=== PATIENT | female | born 2000 | race African-American/Black ===

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

== ENCOUNTER 2022-05-17 10:57 | Emergency (ER) | payer BC ==
[~2022-05-17] VITALS: Ht 160 cm; Wt 49.0 kg
[2022-05-17 11:25] VITALS: BP_SYST 122
--- NOTE | 2022-05-17 11:25 | NUR ---
Patient triaged and placed in waiting room. VSS and patient appears in no acute distress at this time. Accompanied by SELF, awaiting available bed, and MD notified of need for MSE.
--- NOTE | 2022-05-17 14:23 | NUR ---
ER DR. SANCHEZ EXAMINING PT IN TRIAGE
[2022-05-17 14:34] LABS: BILIRUBIN,URINE NEGATIVE (NEGATIVE); BLOOD, URINE 3+ (NEGATIVE); COLOR,URINE YELLOW (YELLOW); GLUCOSE,URINE NEGATIVE (NEGATIVE); KETONES,URINE NEGATIVE (NEGATIVE); LEUKOCYTE ESTERASE ,URINE NEGATIVE (NEGATIVE); NITRITE, URINE NEGATIVE (NEGATIVE); PROTEIN URINE NEGATIVE (NEGATIVE); UROBILINOGEN,URINE 0.2 (0.2-1.0)
[2022-05-17 14:49] LABS: BACTERIA,URINE FEW /HPF (None Seen); CLARITY/URINE HAZY (CLEAR); RBC,URINE 50-80 /HPF (0-3); WBC,URINE 0-3 /HPF (0-3)
[2022-05-17 14:50] LABS: MUCUS,URINE None Seen /LPF (None Seen)
[2022-05-17 15:06] LABS: BASOPHILS % (AUTO) 0.6 % (0.0-2.0); EOSINOPHILS # (AUTO) 0.1 K/uL (0.0-0.4); HEMATOCRIT 38.6 % (36-48); HEMOGLOBIN 12.8 g/dL (12.0-16.0); LYMPHOCYTES # (AUTO) 1.5 K/uL (1.0-5.5); LYMPHOCYTES % (AUTO) 27.6 % (20.5-51.5); MEAN CORPUSCULAR HEMOGLOBIN 30 pg (27-31); MEAN CORPUSCULAR HGB CONC 33 % (32-36); MEAN CORPUSCULAR VOLUME 89 fL (79.0-98.0); MONOCYTES # (AUTO) 0.4 K/uL (0.0-1.0); MONOCYTES % (AUTO) 7.3 % (1.7-9.3); NEUTROPHILS # (AUTO) 3.3 K/uL (1.8-7.7); NEUTROPHILS % (AUTO) 62.5 % (40.0-70.0); PLATELET COUNT (AUTO) 216 K/uL (130-430); RED BLOOD CELL COUNT(AUTO) 4.32 MIL/uL (4.2-6.2); RED CELL DISTRIBUTION WIDTH 13.2 % (9.0-15.0); WHITE BLOOD COUNT (AUTO) 5.3 K/uL (4.5-11.0)
[2022-05-17 15:17] LABS: PROTHROMBIN TIME 10.7 SECS (9.5-12.5)
[2022-05-17 16:32] VITALS: BP_SYST 116
--- NOTE | 2022-05-17 16:32 | NUR ---
Patient given written and verbal discharge instructions and verbalizes understanding. ER MD discussed with patient the results and treatment provided. Patient in stable condition. ID arm band removed. NO RX GIVEN. Patient educated on pain management and to follow up with PMD. Pain Scale 0/10 Opportunity for questions provided and answered. FOLLOW UP IN 2 DAYS FOR REPEAT HCG
== END 2022-05-17 16:32 | disposition home or self-care (01) ==
LOC: SED 10:57
DX: O20.9 Hemorrhage in early pregnancy, unspecified (principal); Z3A.01 Less than 8 weeks gestation of pregnancy; Z88.0 Allergy status to penicillin; Z88.1 Allergy status to other antibiotic agents; Z79.899 Other long term (current) drug therapy
CPT/HCPCS: 36415; 76802; 81000; 84702; 85025; 85610-TC; 85730-TC; 86900; 86901; 99284

== ENCOUNTER 2023-01-28 04:50 | Inpatient (IN) | payer BC ==
[2023-01-28] VITALS (10 sets, daily range): BP systolic 110–149; PULSE 62–100; RESP 13–23; TEMP 97.6–98.6; O2SAT 18–100
[~2023-01-28] VITALS: Ht 160 cm; Wt 65.3 kg
[2023-01-28] MEDS ORDERED: CLINDAMYCIN 600 mg/50mL D5W 50 ML IV ONE (06:00)
[2023-01-28] MEDS ORDERED: CLINDAMYCIN 900 mg/50mL D5W 50 ML IV ONE (06:00)
[2023-01-28] MEDS ORDERED: LR 1,000 ML IV SCH ×2 (06:00→08:30)
[2023-01-28] MEDS ORDERED: CITRIC ACID/SODIUM CITRATE 30 ML UDC PO ONE (06:00)
[2023-01-28 06:13] LABS: BASOPHILS % (AUTO) 0.7 % (0.0-2.0); EOSINOPHILS % (AUTO) 0.7 % (0.0-4.0); HEMATOCRIT 36.1 % (36-48); HEMOGLOBIN 11.9 g/dL (12.0-16.0); LYMPHOCYTES # (AUTO) 1.2 K/uL (1.0-5.5); LYMPHOCYTES % (AUTO) 24.6 % (20.5-51.5); MEAN CORPUSCULAR HEMOGLOBIN 30 pg (27-31); MEAN CORPUSCULAR HGB CONC 33 % (32-36); MEAN CORPUSCULAR VOLUME 90 fL (79.0-98.0); MONOCYTES # (AUTO) 0.5 K/uL (0.0-1.0); MONOCYTES % (AUTO) 9.2 % (1.7-9.3); NEUTROPHILS # (AUTO) 3.3 K/uL (1.8-7.7); NEUTROPHILS % (AUTO) 64.8 % (40.0-70.0); PLATELET COUNT (AUTO) 129 K/uL (130-430); RED BLOOD CELL COUNT(AUTO) 4.03 MIL/uL (4.2-6.2); RED CELL DISTRIBUTION WIDTH 18.4 % (9.0-15.0)
[2023-01-28 06:25] LABS: BILIRUBIN,URINE NEGATIVE (NEGATIVE); BLOOD, URINE NEGATIVE (NEGATIVE); CLARITY/URINE Clear (CLEAR); COLOR,URINE YELLOW (YELLOW); GLUCOSE,URINE NEGATIVE (NEGATIVE); KETONES,URINE NEGATIVE (NEGATIVE); LEUKOCYTE ESTERASE ,URINE 1+ (NEGATIVE); NITRITE, URINE NEGATIVE (NEGATIVE); PROTEIN URINE NEGATIVE (NEGATIVE); UROBILINOGEN,URINE 0.2 (0.2-1.0)
[2023-01-28 06:49] LABS: BACTERIA,URINE RARE /HPF (None Seen); RBC,URINE 0-3 /HPF (0-3); WBC,URINE 0-3 /HPF (0-3)
[2023-01-28] MEDS ORDERED: METHYLERGONOVINE MALEATE 0.2 MG/ML AMP ONE (07:14)
[2023-01-28] MEDS ORDERED: NALOXONE HCL 0.4 MG/ML AMP (NARCAN) IVP PRN ×3 (08:00→15:15)
[2023-01-28] MEDS ORDERED: DIPHENHYDRAMINE INJ 50 MG/ML VIAL IM PRN (08:00)
[2023-01-28] MEDS ORDERED: KETOROLAC TROMETHAMINE 60 MG/2 ML VIAL IM PRN (08:00)
[2023-01-28] MEDS ORDERED: MEASLES,MUMPS&RUBELLA VACC/PF 12500 UNIT/0.5 ML VIAL SUBQ PRN (08:30)
[2023-01-28] MEDS ORDERED: DIPHTH,PERTUSS(ACELL),TET VAC 0.5 ML VIAL (Tdap) I.M. PRN (08:30)
[2023-01-28] MEDS ORDERED: OXYTOCIN/0.9 % SODIUM CHLORIDE 1,000 ML IV SCH ×2 (08:30→22:00)
[2023-01-28] MEDS ORDERED: ANUSOL 1 EA SUPP.RECT (PREPARATION H) RC PRN (08:30)
[2023-01-28] MEDS ORDERED: HYDROcodone/ACETAMIN 5-325 MG TAB (NORCO/ VICODIN) PO PRN (08:30)
[2023-01-28] MEDS ORDERED: TEMAZEPAM 15 MG CAPSULE PO PRN (08:30)
[2023-01-28] MEDS ORDERED: LANOLIN 7 GM OINT. TP PRN (08:30)
[2023-01-28] MEDS ORDERED: RHO(D) IMMUNE GLOBULIN/MALTOSE 1500 UNITS/1.3 ML (WINHRO) IM PRN (08:30)
[2023-01-28] MEDS: BISACODYL 10 MG/SUPPOSITORY RC SCH (09:00)
[2023-01-28] MEDS ORDERED: ACETAMINOPHEN I.V. 1000 MG 100 ML IV ONE ×2 (09:26→09:30)
[2023-01-28] MEDS: ONDANSETRON HCL 4 MG/2 ML VIAL IVP PRN ×2 (13:02→16:56)
[2023-01-28] MEDS ORDERED: MAGNESIUM SULFATE IN WATER 500 ML IV SCH (13:30)
[2023-01-28] MEDS ORDERED: levETIRAcetam 1,000 MG in NS 90 ML IV PRN (13:30)
[2023-01-28] MEDS ORDERED: LORazepam 2 MG/ML VIAL IVP PRN ×4 (13:30→17:15)
[2023-01-28] MEDS ORDERED: MAGNESIUM SULFATE IN WATER 100 ML IV ONE ×2 (13:30→13:32)
[2023-01-28 14:00] LABS: BASOPHILS % (AUTO) 0.4 % (0.0-2.0); EOSINOPHILS % (AUTO) 0.1 % (0.0-4.0); HEMATOCRIT 39.4 % (36-48); HEMOGLOBIN 12.7 g/dL (12.0-16.0); LYMPHOCYTES # (AUTO) 1.3 K/uL (1.0-5.5); MEAN CORPUSCULAR HEMOGLOBIN 29 pg (27-31); MEAN CORPUSCULAR HGB CONC 32 % (32-36); MEAN CORPUSCULAR VOLUME 91 fL (79.0-98.0); MONOCYTES # (AUTO) 0.8 K/uL (0.0-1.0); MONOCYTES % (AUTO) 6.6 % (1.7-9.3); NEUTROPHILS # (AUTO) 9.4 K/uL (1.8-7.7); NEUTROPHILS % (AUTO) 81.9 % (40.0-70.0); PLATELET COUNT (AUTO) 154 K/uL (130-430); RED BLOOD CELL COUNT(AUTO) 4.31 MIL/uL (4.2-6.2); RED CELL DISTRIBUTION WIDTH 18.2 % (9.0-15.0); WHITE BLOOD COUNT (AUTO) 11.5 K/uL (4.8-10.8)
[2023-01-28] MEDS ORDERED: LORazepam 2 MG/ML VIAL ONE ×2 (14:00→14:19)
[2023-01-28 14:18] LABS: CALCIUM 8.2 mg/dL (8.4-11.0); CREATININE 1.22 mg/dL (0.55-1.30); POTASSIUM 3.3 mmol/L (3.5-5.1)
[2023-01-28 14:23] LABS: ALBUMIN 2.2 g/dL (3.4-4.8); TOTAL BILIRUBIN 0.3 mg/dL (0.0-1.0); TOTAL PROTEIN, SERUM 5.5 g/dL (6.4-8.3)
[2023-01-28] MEDS ORDERED: ONDANSETRON HCL 4 MG/2 ML VIAL IVP PRN (15:15)
[2023-01-28] MEDS ORDERED: MAGNESIUM SULFATE IN WATER 1,000 ML IV PRN (15:15)
[2023-01-28] MEDS ORDERED: MORPHINE 4 MG INJ. 4 MG/ML VIAL IVP PRN (15:15)
[2023-01-28] MEDS ORDERED: MORPHINE 2 MG/ML INJ. SYRINGE IVP PRN (15:15)
[2023-01-28] MEDS: KETOROLAC TROMETHAMINE 30 MG VIAL IVP SCH (18:00)
[2023-01-28] MEDS ORDERED: ACETAMINOPHEN 325 MG TABLET PO PRN (18:30)
[2023-01-28] MEDS: SENNOSIDES/DOCUSATE SODIUM 1 TAB TABLET(SENOKOT-S) PO SCH (23:43)
[2023-01-29] VITALS (17 sets, daily range): BP systolic 107–137; PULSE 57–79; RESP 14–27; TEMP 97.1–98.3; O2SAT 95–100
[2023-01-29] MEDS: KETOROLAC TROMETHAMINE 30 MG VIAL IVP SCH ×3 (00:08→07:03)
[2023-01-29 06:31] LABS: BASOPHILS % (AUTO) 0.3 % (0.0-2.0); EOSINOPHILS % (AUTO) 0.1 % (0.0-4.0); HEMATOCRIT 30.8 % (36-48); HEMOGLOBIN 10.4 g/dL (12.0-16.0); LYMPHOCYTES # (AUTO) 0.8 K/uL (1.0-5.5); LYMPHOCYTES % (AUTO) 8.5 % (20.5-51.5); MEAN CORPUSCULAR HEMOGLOBIN 30 pg (27-31); MEAN CORPUSCULAR HGB CONC 34 % (32-36); MEAN CORPUSCULAR VOLUME 89 fL (79.0-98.0); MONOCYTES # (AUTO) 0.4 K/uL (0.0-1.0); MONOCYTES % (AUTO) 4.6 % (1.7-9.3); NEUTROPHILS # (AUTO) 8.4 K/uL (1.8-7.7); NEUTROPHILS % (AUTO) 86.5 % (40.0-70.0); PLATELET COUNT (AUTO) 122 K/uL (130-430); RED BLOOD CELL COUNT(AUTO) 3.48 MIL/uL (4.2-6.2); RED CELL DISTRIBUTION WIDTH 18.4 % (9.0-15.0); WHITE BLOOD COUNT (AUTO) 9.7 K/uL (4.8-10.8)
[2023-01-29 06:53] LABS: ALBUMIN 1.6 g/dL (3.4-4.8); CALCIUM 7.6 mg/dL (8.4-11.0); CREATININE 0.97 mg/dL (0.55-1.30); POTASSIUM 3.8 mmol/L (3.5-5.1); TOTAL BILIRUBIN 0.4 mg/dL (0.0-1.0); TOTAL PROTEIN, SERUM 4.3 g/dL (6.4-8.3)
[2023-01-29] MEDS ORDERED: KETOROLAC TROMETHAMINE 30 MG VIAL ONE (06:59)
[2023-01-29] MEDS ORDERED: CALCIUM GLUCONATE 1 GM/10 ML VIAL IVP ONE (08:15)
[2023-01-29] MEDS ORDERED: OXYTOCIN/0.9 % SODIUM CHLORIDE 1,000 ML IV SCH ×2 (08:30→21:15)
[2023-01-29] MEDS ORDERED: CALCIUM GLUCONATE 1 GM in NS 50 ML IV ONE (08:30)
[2023-01-29] MEDS: BISACODYL 10 MG/SUPPOSITORY RC SCH (09:00)
[2023-01-29] MEDS: DOCUSATE SODIUM 100 MG CAPSULE PO SCH ×2 (09:00→21:23)
[2023-01-29] MEDS ORDERED: FAMOTIDINE 20 MG TABLET PO ONE (10:15)
[2023-01-29] MEDS ORDERED: IBUPROFEN 600 MG TABLET PO SCH (12:00)
[2023-01-29] MEDS ORDERED: MAGNESIUM SULFATE IN WATER 500 ML IV PRN (17:30)
[2023-01-29] MEDS ORDERED: NACL 0.9% IV SCH (21:00)
[2023-01-29] MEDS ORDERED: OXYTOCIN IV SCH (21:00)
[2023-01-29] MEDS: SENNOSIDES/DOCUSATE SODIUM 1 TAB TABLET(SENOKOT-S) PO SCH (21:23)
[2023-01-29] MEDS: SIMETHICONE 80 MG TAB.CHEW PO PRN (21:24)
[2023-01-29] MEDS: OXYCODONE/ACETAMINOPHEN 5-325 TABLET PO PRN ×2 (21:30→22:38)
[2023-01-30] MEDS: OXYCODONE/ACETAMINOPHEN *10*mg/325 mg TABLET PO PRN ×4 (04:04→20:27)
[2023-01-30] MEDS: SIMETHICONE 80 MG TAB.CHEW PO PRN ×3 (04:05→15:25)
[2023-01-30] MEDS: DOCUSATE SODIUM 100 MG CAPSULE PO SCH ×2 (08:57→20:56)
[2023-01-30] MEDS ORDERED: FAMOTIDINE 20 MG TABLET PO SCH (09:00)
[2023-01-30] MEDS: SENNOSIDES/DOCUSATE SODIUM 1 TAB TABLET(SENOKOT-S) PO SCH (20:56)
[2023-01-31] MEDS: OXYCODONE/ACETAMINOPHEN *10*mg/325 mg TABLET PO PRN ×3 (00:41→20:51)
[2023-01-31] MEDS: SIMETHICONE 80 MG TAB.CHEW PO PRN ×2 (05:53→20:51)
[2023-01-31 07:18] LABS: BASOPHILS % (AUTO) 0.5 % (0.0-2.0); EOSINOPHILS # (AUTO) 0.2 K/uL (0.0-0.4); EOSINOPHILS % (AUTO) 2.3 % (0.0-4.0); HEMATOCRIT 29.7 % (36-48); HEMOGLOBIN 10.1 g/dL (12.0-16.0); LYMPHOCYTES # (AUTO) 1.3 K/uL (1.0-5.5); MEAN CORPUSCULAR HEMOGLOBIN 30 pg (27-31); MEAN CORPUSCULAR HGB CONC 34 % (32-36); MEAN CORPUSCULAR VOLUME 89 fL (79.0-98.0); MONOCYTES # (AUTO) 0.5 K/uL (0.0-1.0); MONOCYTES % (AUTO) 6.5 % (1.7-9.3); NEUTROPHILS # (AUTO) 5.2 K/uL (1.8-7.7); NEUTROPHILS % (AUTO) 72.7 % (40.0-70.0); PLATELET COUNT (AUTO) 161 K/uL (130-430); RED BLOOD CELL COUNT(AUTO) 3.34 MIL/uL (4.2-6.2); RED CELL DISTRIBUTION WIDTH 18.8 % (9.0-15.0); WHITE BLOOD COUNT (AUTO) 7.2 K/uL (4.8-10.8)
[2023-01-31 07:40] LABS: CALCIUM 7.6 mg/dL (8.4-11.0); CREATININE 0.92 mg/dL (0.55-1.30)
[2023-01-31] MEDS: DOCUSATE SODIUM 100 MG CAPSULE PO SCH (20:50)
[2023-01-31] MEDS: SENNOSIDES/DOCUSATE SODIUM 1 TAB TABLET(SENOKOT-S) PO SCH (20:51)
[2023-02-01] MEDS: SIMETHICONE 80 MG TAB.CHEW PO PRN ×2 (03:04→09:08)
[2023-02-01] MEDS: OXYCODONE/ACETAMINOPHEN *10*mg/325 mg TABLET PO PRN ×2 (03:05→09:08)
[2023-02-01 05:12] LABS: BASOPHILS % (AUTO) 0.4 % (0.0-2.0); EOSINOPHILS # (AUTO) 0.2 K/uL (0.0-0.4); EOSINOPHILS % (AUTO) 3.1 % (0.0-4.0); HEMATOCRIT 29.9 % (36-48); HEMOGLOBIN 10.1 g/dL (12.0-16.0); LYMPHOCYTES # (AUTO) 1.7 K/uL (1.0-5.5); LYMPHOCYTES % (AUTO) 25.5 % (20.5-51.5); MEAN CORPUSCULAR HEMOGLOBIN 30 pg (27-31); MEAN CORPUSCULAR HGB CONC 34 % (32-36); MEAN CORPUSCULAR VOLUME 89 fL (79.0-98.0); MONOCYTES # (AUTO) 0.4 K/uL (0.0-1.0); MONOCYTES % (AUTO) 6.6 % (1.7-9.3); NEUTROPHILS # (AUTO) 4.2 K/uL (1.8-7.7); NEUTROPHILS % (AUTO) 64.4 % (40.0-70.0); PLATELET COUNT (AUTO) 171 K/uL (130-430); RED BLOOD CELL COUNT(AUTO) 3.37 MIL/uL (4.2-6.2); RED CELL DISTRIBUTION WIDTH 18.1 % (9.0-15.0); WHITE BLOOD COUNT (AUTO) 6.5 K/uL (4.8-10.8)
[2023-02-01 05:26] LABS: CALCIUM 8.1 mg/dL (8.4-11.0); CREATININE 0.75 mg/dL (0.55-1.30); POTASSIUM 3.6 mmol/L (3.5-5.1)
[2023-02-01] MEDS: DOCUSATE SODIUM 100 MG CAPSULE PO SCH (09:07)
== END 2023-02-01 11:22 | disposition home or self-care (01) | DRG 786 ==
LOC: SPU 04:50 → SIC 15:01 → SPU 01-29 20:31
PROVIDERS: ADMIT Specialist; ATTEND Specialist
PROC: 10D00Z1 Extraction of Products of Conception, Low, Open Approach (ICD-10-PCS; principal; 2023-01-28 07:00)
PROC: 4A00X4Z Measurement of Central Nervous Electrical Activity, External Approach (ICD-10-PCS; 2023-01-29)
DX: O30.003 Twin pregnancy, unspecified number of placenta and unspecified number of amniotic sacs, third trimester (principal); O15.2 Eclampsia complicating the puerperium; O99.354 Diseases of the nervous system complicating childbirth; O90.81 Anemia of the puerperium; D64.9 Anemia, unspecified; Z88.1 Allergy status to other antibiotic agents; G40.909 Epilepsy, unspecified, not intractable, without status epilepticus; Z88.0 Allergy status to penicillin; Z79.899 Other long term (current) drug therapy; Z3A.36 36 weeks gestation of pregnancy; Z37.2 Twins, both liveborn
CPT/HCPCS: 36415; 70470-TC; 76376; 80048; 80053; 81000; 81002; 82962; 83735; 85025; 86592; 86886; 86900; 86901; 88307; 94760; 95816; J0131; J0610; J1885; J1953; J2060; J2210; J2270; J2405; J2590; J3475; J3490; J7030; J7050; Q9967

== ENCOUNTER 2023-12-26 01:03 | Emergency (ER) | payer BC ==
[~2023-12-26] VITALS: Ht 160 cm; Wt 53.1 kg
[2023-12-26 01:37] VITALS: BP_SYST 137; PULSE 115; RESP 20; TEMP 99.8; O2SAT 97
[2023-12-26] MEDS: KETOROLAC TROMETHAMINE 30 MG VIAL IVP ONE (02:35)
[2023-12-26] MEDS: cefTRIAXone 1 GM IVPB PREMIX 50 ML IV ONE (02:35)
[2023-12-26] MEDS: NACL 0.9% 1,000 ML IV ONE (02:35)
[2023-12-26] MEDS ORDERED: ACETAMINOPHEN 500 MG TABLET ONE (03:29)
[2023-12-26] MEDS: ACETAMINOPHEN 325 MG TABLET PO ONE (03:57)
[2023-12-26 04:07] VITALS: BP_SYST 124; PULSE 100; RESP 18; O2SAT 96
[2023-12-26] MEDS ORDERED: CEPH-548 PO (04:16)
== END 2023-12-26 04:24 | disposition home or self-care (01) ==
LOC: SED 01:03
DX: N61.0 Mastitis without abscess (principal); R11.0 Nausea; Z98.890 Other specified postprocedural states; Z88.0 Allergy status to penicillin; Z88.1 Allergy status to other antibiotic agents
CPT/HCPCS: 99284; 96365; 96375; 87040; 36415; J0696; J1885